=== PATIENT | female | born 1960 ===

== ENCOUNTER 2016-07-14 09:37 | Emergency (ER) | payer BC ==
[2016-07-14 09:52] VITALS: BP 122/67
[2016-07-14] MEDS ORDERED: Albuterol/Ipratropium NEB.SOL* Albuterol 2.5 MG/Ipratropium 0.5 MG 3 ML INH ONE (10:09)
--- NOTE | 2016-07-14 10:15 | UC ---
Respiratory Complaint HPI - HPI Summary HPI Summary: 55 year old female with 3 days of harsh cough and fever. She has developed a headache due to her cough. Mild sore throat and mild clear runny nose. Denies chest pain or discomfort - History of Current Complaint Chief Complaint: UCRespiratory Stated Complaint: COUGH SINUS ISSUE Time Seen by Provider: 07/14/16 09:59 Hx Obtained From: Patient Hx Last Menstrual Period: HAD UTERINE ABLATION ?: No Onset/Duration: Sudden Onset, Lasting Days - 3, Still Present Timing: Constant Severity Initially: Mild Severity Currently: Moderate Character: Cough: Nonproductive Aggravating Factors: Deep Breaths, Recumbent Position Alleviating Factors: OTC Meds - not helping, Nothing Associated Signs And Symptoms: Positive: Fever, URI, Nasal Congestion. Negative : Dyspnea, Chills, Pleuritic Chest Pain, Wheezing, Dizziness, Calf Pain, Calf Swelling, Edema, Hoarseness, Sinus Discomfort - Risk Factors Pulmonary Embolism Risk Factors: Negative Cardiac Risk Factors: Negative Pseudomonas Risk Factors: Negative Tuberculosis Risk Factors: Negative - Allergies/Home Medications Allergies/Adverse Reactions: Allergies Allergy/AdvReac Type Severity Reaction Status Date / Time No Known Allergies Allergy Verified 07/14/16 09:46 Home Medications: Home Medications [id number] [Severe Cold & Flu Daytime] 07/14/16 [History] PMH/Surg Hx/FS Hx/Imm Hx Previously Healthy: Yes Endocrine History Of: Denies: Diabetes, Thyroid Disease Cardiovascular History Of: Denies: Cardiac Disorders, Hypertension Respiratory History Of: Denies: COPD, Asthma GI/ History Of: Denies: Ulcer - Surgical History Surgical History: Yes Surgery Procedure, Year, and Place: bladder SX. right knee scopy - Family History Known Family History: Negative: Hypertension, Diabetes - Social History Occupation: Employed Full-time Lives: With Family Alcohol Use: Occasionally Substance Use Type: None Smoking Status (MU): Never Smoked Tobacco Type: eCigarettes Have You Smoked in the Last Year: No Review of Systems Constitutional: Fever Skin: Negative Eyes: Negative ENT: Nasal Discharge - clear Respiratory: Cough - harsh Cardiovascular: Negative Gastrointestinal: Negative Genitourinary: Negative Motor: Negative Neurovascular: Negative Musculoskeletal: Negative Neurological: Headache Psychological: Negative All Other Systems Reviewed And Are Negative: Yes Physical Exam Triage Information Reviewed: Yes Appearance: No Pain Distress, Well-Nourished, Ill-Appearing - mildly Vital Signs: Initial Vital Signs Temp 100.3 F 07/14/16 09:47 Pulse 91 07/14/16 09:47 Resp 16 07/14/16 09:47 BP 122/67 07/14/16 09:47 Pulse Ox 95 07/14/16 09:47 Vital Signs Reviewed: Yes Eyes: Positive: Conjunctiva Clear. Negative: Discharge ENT: Positive: Pharynx normal, Nasal drainage - clear, TMs normal, Other: - no sinus pain or pressure appreciated with palpation. Negative: Nasal congestion Neck: Positive: Supple, Nontender, No Lymphadenopathy Respiratory: Positive: Decreased breath sounds, Other: - harsh cough noted with deep inspiration Cardiovascular: Positive: RRR, No Murmur Musculoskeletal: Positive: Strength Intact, ROM Intact, No Edema Neurological: Positive: Alert, Muscle Tone Normal Psychological: Positive: Age Appropriate Behavior - pleasant and cooperative. Negative: Decreased Age Appropriate Behavior Skin: Negative: rashes, breakdown UC Diagnostic Evaluation - Laboratory O2 Sat by Pulse Oximetry: 95 Respiratory Course/Dx - Course Course Of Treatment: Chest Xray - Negative. Rapid influenza- Positive for Flu A. Duo Neb - with mild relief of symptoms - Differential Dx/Diagnosis Differential Diagnosis/HQI/PQRI: Bronchitis, Influenza, Lower Resp Infection Provider Diagnoses: Influenza A Discharge - Discharge Plan Condition: Stable Disposition: HOME Prescriptions: Oseltamivir CAP* [Tamiflu CAP*] 75 mg PO BID #10 cap Patient Education Materials: Influenza (ED), Oseltamivir (By mouth)
--- NOTE | 2016-07-14 10:35 | RAD ---
INDICATION: Fever and cough. COMPARISON: There are no prior studies available for comparison. TECHNIQUE: Dual-energy PA and lateral views of the chest were obtained. FINDINGS: The heart is within normal limits in size. Mediastinal and hilar contours appear within normal limits. The lungs are clear. No pleural effusion is present. IMPRESSION: NO EVIDENCE FOR ACTIVE CARDIOPULMONARY DISEASE.
== END 2016-07-14 10:48 | disposition home or self-care (01) ==
LOC: UCEAST 09:37
DX: J09.X2 Influenza due to identified novel influenza A virus with other respiratory manifestations (principal)
CPT/HCPCS: 71020; 87502; 99212; A9270-GY; G0463